=== PATIENT | male | born 1950 | race Hispanic/Latino ===

== ENCOUNTER → 2018-07-11 | Outpatient (CLI) | payer MEDICARE | END | disposition home or self-care (01) | LOC: OIH 08:21 | PROVIDERS: ATTEND Internal Medicine | DX: I70.0 Atherosclerosis of aorta (principal); I11.0 Hypertensive heart disease with heart failure; R91.8 Other nonspecific abnormal finding of lung field | CPT/HCPCS: 71046 ==

== ENCOUNTER 2019-04-12 06:41 | Day surgery (SDC) | payer MEDICARE ==
[~2019-04-12] VITALS: Ht 170.2 cm; Wt 114.8 kg
[~2019-04-12 06:41] MED LIST: ASPI-555 PO; CITA-107 PO; FINA5TAB41 PO; LISI10TA7 PO; METF-446 PO; METO-408 PO; OMEP20CA12 PO; SODIUM CHLORIDE 0.9% 1000ML 1,000 ML IV ONE; TAMS-1 PO
[2019-04-12 07:59] VITALS: BP 126/77
[2019-04-12] MEDS ORDERED: TERB250T51 PO (08:05)
[2019-04-12] MEDS ORDERED: PROPOFOL 10 MG/ML 20ML VIAL IV ONE (08:52)
[2019-04-12 09:03] VITALS: BP 114/78
[2019-04-12 09:08] VITALS: BP 139/82
[2019-04-12 09:13] VITALS: BP 133/83
== END 2019-04-12 09:30 | disposition home or self-care (01) ==
LOC: DAH 06:41 → ENDO 06:41
PROVIDERS: ATTEND Internal Medicine Gastroenterology
DX: Z12.11 Encounter for screening for malignant neoplasm of colon (principal); I10 Essential (primary) hypertension; E11.9 Type 2 diabetes mellitus without complications; I25.2 Old myocardial infarction; I25.10 Atherosclerotic heart disease of native coronary artery without angina pectoris; F31.9 Bipolar disorder, unspecified; E78.5 Hyperlipidemia, unspecified; I44.7 Left bundle-branch block, unspecified; F41.9 Anxiety disorder, unspecified; K21.9 Gastro-esophageal reflux disease without esophagitis; N40.0 Benign prostatic hyperplasia without lower urinary tract symptoms; Z79.899 Other long term (current) drug therapy; Z85.46 Personal history of malignant neoplasm of prostate; Z79.84 Long term (current) use of oral hypoglycemic drugs; Z79.82 Long term (current) use of aspirin; Z90.49 Acquired absence of other specified parts of digestive tract
CPT/HCPCS: 82948 ×2; 93005; A4215; A4221; A4222; A4223; A4606; A4615; A4663; G0121; J2704; J7030

== ENCOUNTER 2019-04-17 09:04 | Day surgery (SDC) | payer MEDICARE ==
[~2019-04-17] VITALS: Ht 170.2 cm; Wt 114.8 kg
[~2019-04-17 09:04] MED LIST changes: +TERB250T51 PO
[2019-04-17 10:56] VITALS: BP 110/73
[2019-04-17] MEDS ORDERED: PROPOFOL 10 MG/ML 20ML VIAL IV ONE (12:33)
[2019-04-17 12:45] VITALS: BP 123/68
[2019-04-17 12:50] VITALS: BP 121/68
[2019-04-17 12:55] VITALS: BP 119/68
[2019-04-17 13:00] VITALS: BP 120/68
[2019-04-17 13:05] VITALS: BP 123/68
--- NOTE | 2019-04-17 13:06 | NUR ---
dc pt dc home via wc,no distress noted. pt accompanied by spouse,
== END 2019-04-17 13:06 | disposition home or self-care (01) ==
LOC: ENDO 09:04
PROVIDERS: ATTEND Internal Medicine Gastroenterology
DX: Z12.11 Encounter for screening for malignant neoplasm of colon (principal); K21.9 Gastro-esophageal reflux disease without esophagitis; E11.9 Type 2 diabetes mellitus without complications; I25.2 Old myocardial infarction; I25.10 Atherosclerotic heart disease of native coronary artery without angina pectoris; E78.5 Hyperlipidemia, unspecified; I10 Essential (primary) hypertension; F41.9 Anxiety disorder, unspecified; F31.9 Bipolar disorder, unspecified; Z79.82 Long term (current) use of aspirin; Z90.49 Acquired absence of other specified parts of digestive tract; Z85.46 Personal history of malignant neoplasm of prostate; Z79.84 Long term (current) use of oral hypoglycemic drugs
CPT/HCPCS: 82948 ×2; A4215; A4221; A4222; A4223; A4606; A4615; A4663; G0121; J2704; J7030 ×2

== ENCOUNTER → 2019-05-02 | Outpatient (CLI) | payer MEDICARE ==
[~2019-05-02] MED LIST changes: -SODIUM CHLORIDE 0.9% 1000ML 1,000 ML IV ONE
== END | disposition home or self-care (01) ==
LOC: OIH 10:29
PROVIDERS: ATTEND Internal Medicine
DX: I10 Essential (primary) hypertension (principal); M47.814 Spondylosis without myelopathy or radiculopathy, thoracic region
CPT/HCPCS: 71046

== ENCOUNTER → 2020-06-04 | Outpatient (CLI) | payer MEDICARE ==
[~2020-06-04] MED LIST changes: -ASPI-555 PO; +ASPI-556 PO; +LISI10TA24 PO; -LISI10TA7 PO
== END | disposition home or self-care (01) ==
LOC: OIH 10:49
PROVIDERS: ATTEND Internal Medicine
DX: J20.9 Acute bronchitis, unspecified (principal); R06.2 Wheezing
CPT/HCPCS: 71046